=== PATIENT | male | born 1965 | race Caucasian/White ===

== ENCOUNTER 2017-08-05 08:20 | Emergency (ER) | payer OTHER ==
[~2017-08-05] VITALS: Ht 182.9 cm; Wt 168.0 kg
[2017-08-05] MEDS ORDERED: CARV6.25 PO (08:28)
[2017-08-05] MEDS ORDERED: GABA-112 PO (08:28)
[2017-08-05] MEDS ORDERED: SERT50TA PO (08:28)
[2017-08-05] MEDS ORDERED: HYDR-4717 PO (08:28)
[2017-08-05] MEDS ORDERED: ALBUAER PO (08:28)
[2017-08-05] MEDS ORDERED: ASPI81TA28 PO (08:28)
[2017-08-05] MEDS ORDERED: INSU3INJ3 SQ (08:28)
[2017-08-05] MEDS ORDERED: NTRGSL/4 UT (08:28)
[2017-08-05] MEDS ORDERED: BUME2TAB3 PO (08:35)
[2017-08-05] MEDS ORDERED: SEVE1TAB PO (08:35)
[2017-08-05] MEDS ORDERED: PRLSR20 PO (08:43)
[2017-08-05] MEDS ORDERED: WARFARIN PO (08:43)
[2017-08-05] MEDS ORDERED: NYST100033 TOP (08:43)
[2017-08-05] MEDS ORDERED: NVLG SQ (08:43)
[2017-08-05 08:47] VITALS: Ht 182.9 cm; Wt 168.0 kg
--- NOTE | 2017-08-05 08:47 | EMERGENCY ROOM VISIT NOTE ---
History Report prepared by Vinnie: Gomez Diaz Under the Supervision of: Dr. Miguel A Mullins M.D. First contact with patient: 08:30 Stated Complaint: ILLNESS History of Present Illness The patient is a 51 year old male who presents to the Emergency Room with complaints of worsening discoloration in his bilateral lower extremities. The patient states that he and his first started noticing his toes and lower extremities turning "blue" 10 days ago. He commonly follows with Dr. Stubbs - Vascular Surgery at [facility]. The patient currently has a port in place, which is used as a Dialysis Catheter. The patient's last visit to [facility] was around [place] time when he had the wounds on his feet evaluated. The blue coloration was not present at this time. The patient states that he is having pain in the lower extremities currently. 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 A total of 10 systems reviewed and were otherwise negative. Past Medical & Surgical Medical Problems: (1) Diabetes Diabetes Family History Diabetes mellitus Social History Marital Status: Housing Status: lives with family Occupation Status: unemployed Current/Historical Medications Scheduled Aspirin (Aspirin Ec), 81 MG PO DAILY Bumetanide (Bumex), 2 MG PO BID Carvedilol (Coreg), 6.25 MG PO BID Gabapentin (Neurontin), 100 MG PO HS Hydralazine Hcl (Apresoline), 50 MG PO TID Insulin Aspart (Novolog), 1 DOSE SQ AC Insulin Detemir (Levemir Flextouch), 32 UNITS SQ HS Nitroglycerin (Nitrostat), 0.4 MG UT PRN Nystatin (Topical) (Nystatin), 1 DOSE TOP BID Omeprazole (Prilosec), 20 MG PO DAILY Sertraline (Zoloft), 50 MG PO HS Sevelamer Hydroch (Renagel), 800 MG PO TIDM [Warfarin], 1 DOSE PO DIRECTED Scheduled PRN Albuterol Sulfate (Proventil Hfa), 2 PUFF PO Q6 PRN for Shortness of Breath Allergies Coded Allergies: Penicillins (Unverified Allergy, Severe, ANAPHYLAXIS, 08/05/17) Aspirin (Unverified Allergy, Unknown, UNKNOWN, 08/05/17) Sulfa Antibiotics (Unverified Allergy, Unknown, UNKNOWN, 08/05/17) Physical Exam Vital Signs Date Time Temp Pulse Resp B/P (MAP) Pulse Ox O2 Delivery O2 Flow Rate FiO2 08/05/17 11:39 69 16 117/58 94 08/05/17 11:11 69 16 117/58 94 Room Air 08/05/17 10:04 36.5 67 20 117/58 99 Room Air 08/05/17 09:22 67 08/05/17 09:09 97 Room Air 08/05/17 08:47 36.6 54 20 100/55 97 Room Air Physical Exam GENERAL: Patient is a healthy-appearing morbidly-obese male. HEAD: Normocephalic atraumatic EYES: Ocular movements intact pupils equal and react to light OROPHARYNX mucous membranes are moist no exudates present no erythema or edema present NECK: Supple no nuchal rigidity CHEST: Good equal expansion LUNGS: Lung sounds are distant CARDIAC: Normal S1 and S2 CHEST: There is a dialysis port catheter in place in the right chest wall. ABDOMEN: Soft nontender no guarding BACK: No CVA tenderness EXTREMITIES: No pain upon palpation normal muscle strength in all groups no clubbing cyanosis or edema. There is blacked 2nd, 3rd, and 4th toes. There are large open wounds to the lower extremities bilaterally. NEURO: Patient is following commands and answering questions appropriately. Alert and oriented x3 Cranial Nerves 2-12 grossly intact Medical Decision & Procedures ER Provider Diagnostic Interpretation: Radiology results as stated below per my review and radiologist interpretation: CHEST ONE VIEW PORTABLE CLINICAL HISTORY: 51 years-old Male presenting with Pt c/o SOB. TECHNIQUE: Portable upright AP view of the chest was obtained. COMPARISON: None. FINDINGS: Tunneled dual-lumen right internal jugular dialysis catheter terminates at the superior cavoatrial junction. Cardiac silhouette moderately enlarged. Prominence of pulmonary vasculature. Mildly low lung volumes with hypoventilatory changes. Nodular opacity at the right lung base may represent a prominent nipple shadow. No other focal opacity. No large effusion or pneumothorax. Osseous structures normal. Upper abdomen normal. IMPRESSION: 1. Cardiomegaly with volume overload suspected. No cele pulmonary edema. 2. Mildly low lung volumes with hypoventilatory changes. 3. Prominent nipple shadow suspected at the right lung base. Electronically signed by: Juan Hamilton M.D. 08/05/2017 9:11 AM Dictated Date/Time: 08/05/2017 9:10 AM Laboratory Results 08/05/17 08:40 Red Blood Count 3.95, Mean Corpuscular Volume 92.7, Mean Corpuscular Hemoglobin 30.9, Mean Corpuscular Hemoglobin Concent 33.3, Mean Platelet Volume 9.2, Neutrophils (%) (Auto) 87.8, Lymphocytes (%) (Auto) 3.6, Monocytes (%) (Auto) 4.5, Eosinophils (%) (Auto) 2.7, Basophils (%) (Auto) 0.2, Neutrophils # (Auto) 17.56, Lymphocytes # (Auto) 0.72, Monocytes # (Auto) 0.90, Eosinophils # (Auto) 0.54, Basophils # (Auto) 0.04 08/05/17 08:40 Test 08/05/17 08:40 08/05/17 09:21 White Blood Count 19.99 K/uL (4.8-10.8) Red Blood Count 3.95 M/uL (4.7-6.1) Hemoglobin 12.2 g/dL (14.0-18.0) Hematocrit 36.6 % (42-52) Mean Corpuscular Volume 92.7 fL (80-100) Mean Corpuscular Hemoglobin 30.9 pg (25-34) Mean Corpuscular Hemoglobin Concent 33.3 g/dl (32-36) Platelet Count 452 K/uL (130-400) Mean Platelet Volume 9.2 fL (7.4-10.4) Neutrophils (%) (Auto) 87.8 % Lymphocytes (%) (Auto) 3.6 % Monocytes (%) (Auto) 4.5 % Eosinophils (%) (Auto) 2.7 % Basophils (%) (Auto) 0.2 % Neutrophils # (Auto) 17.56 K/uL (1.4-6.5) Lymphocytes # (Auto) 0.72 K/uL (1.2-3.4) Monocytes # (Auto) 0.90 K/uL (0.11-0.59) Eosinophils # (Auto) 0.54 K/uL (0-0.5) Basophils # (Auto) 0.04 K/uL (0-0.2) RDW Standard Deviation 48.5 fL (36.4-46.3) RDW Coefficient of Variation 14.3 % (11.5-14.5) Immature Granulocyte % (Auto) 1.2 % Immature Granulocyte # (Auto) 0.23 K/uL (0.00-0.02) Prothrombin Time 15.7 SECONDS (9.0-12.0) Prothromb Time International Ratio 1.5 (0.9-1.1) Anion Gap 14.0 mmol/L (3-11) Est Creatinine Clear Calc Drug Dose 22.0 ml/min Estimated GFR () 10.6 Estimated GFR (Non- 9.1 BUN/Creatinine Ratio 13.4 (10-20) Calcium Level 7.4 mg/dl (8.5-10.1) Total Bilirubin 0.3 mg/dl (0.2-1) Aspartate Amino Transf (AST/SGOT) 23 U/L (15-37) Alanine Aminotransferase (ALT/SGPT) 22 U/L (12-78) Alkaline Phosphatase 351 U/L (45-117) Total Creatine Kinase 72 U/L (39-308) Creatine Kinase MB 4.4 ng/ml (0.5-3.6) Creatine Kinase MB Ratio 6.1 (0-3.0) Troponin I 0.197 ng/ml (0-0.045) Total Protein 4.9 gm/dl (6.4-8.2) Albumin 1.0 gm/dl (3.4-5.0) Globulin 3.9 gm/dl (2.5-4.0) Albumin/Globulin Ratio 0.3 (0.9-2) Bedside Glucose 176 mg/dl (70-99) Labs reviewed by ED physician. Medications Administered Medications (Trade) Dose Ordered Sig/Todd Route Start Time Stop Time Status Last Admin Dose Admin Ceftriaxone Sodium (Rocephin Inj) 1 gm NOW STAT IV 08/05/17 08:53 08/05/17 08:55 DC 08/05/17 11:47 1 GM Vancomycin HCl (Vancomycin 1gm/ 270ml Nss) 1 gm NOW STAT IV 08/05/17 08:53 08/05/17 08:55 DC 08/05/17 10:03 1 GM ECG Per My Interpretation Rate (beats per minute): 62 Rhythm: atrial fibrillation Findings: other (Old lateral infarct, No ST elevations or depressions. ) ED Course 0834: Past medical records reviewed. The patient was evaluated in room B6. A complete history and physical examination was performed. 53: Ordered Vancomycin HCl 1 gm IV, Rocephin 1 gm IV. 902: I discussed the case with Dr. Nimco Roman Vascular Surgery [facility]. He suggests speaking with a hospitalist at [facility]. 905: I discussed the case with Dr. Carlos Rojo Hospitalist. He will accept the patient for transfer. 1005: I discussed the case with Dr. Gonzalez again at this time. We discussed the patient's lab work that is now resulted. Medical Decision Differential diagnosis: Etiologies such as cellulitis, abscess, MRSA infection, DVT, necrotizing fasciitis, dermatitis, drug eruption, as well as others were entertained. This is a 51-year-old male presents emergency department complaining of gangrene to his foot. The patient is immediately requesting to be transferred to [facility] as his this is where all of his surgeries have taken place. As you will most likely require his toes to be amputated I feel that this is reasonable. The patient's vascular surgeon as there is well. He is also due for dialysis today. He has a large elevation in his white blood count cell count therefore the patient had an IV established. He received IV Rocephin and vancomycin. I did discuss the case with the on-call hospitalist at [facility]. Patient and are in agreement with the treatment plan. Medication Reconcilliation Current Medication List: was personally reviewed by me Blood Pressure Screening Patient's blood pressure: Low blood pressure Referred Consults Time Called: 852 Consulting Physician: Dr. Rinaldi - Vascular Surgery [facility] Returned Call: 902 I discussed the case with Dr. Rinaldi [facility]ascular [facility]. He suggests speaking with a hospitalist at [facility]. Additional Consults: Time Called: 903 Consulted Physician: Dr. Gonzalez [facility] Hospitalist Returned Call: 905 Additional Comments: I [facility]. He will accept the patient for transfer. Impression Primary Impression: Gangrene Scribe Attestation The scribe's documentation has been prepared under my direction and personally reviewed by me in its entirety. I confirm that the note above accurately reflects all work, treatment, procedures, and medical decision making performed by me. Departure Information Dispostion Transfer Acute Care Facility ([facility]) Referrals No Doctor, Assigned (PCP)
[2017-08-05] MEDS ORDERED: VANCOMYCIN 1GM/270ML NSS IV STA (08:53)
[2017-08-05] MEDS ORDERED: CEFTRIAXONE SOD INJ 1 GM ADDVIAL IV STA (08:53)
[2017-08-05 09:09] VITALS: O2SAT 97
--- NOTE | 2017-08-05 09:13 | DIAGNOSTIC IMAGING REPORT ---
CHEST ONE VIEW PORTABLE CLINICAL HISTORY: 51 years-old Male presenting with Pt c/o SOB. TECHNIQUE: Portable upright AP view of the chest was obtained. COMPARISON: None. FINDINGS: Tunneled dual-lumen right internal jugular dialysis catheter terminates at the superior cavoatrial junction. Cardiac silhouette moderately enlarged. Prominence of pulmonary vasculature. Mildly low lung volumes with hypoventilatory changes. Nodular opacity at the right lung base may represent a prominent nipple shadow. No other focal opacity. No large effusion or pneumothorax. Osseous structures normal. Upper abdomen normal. IMPRESSION: 1. Cardiomegaly with volume overload suspected. No cele pulmonary edema. 2. Mildly low lung volumes with hypoventilatory changes. 3. Prominent nipple shadow suspected at the right lung base. Electronically signed by: Juan Hamilton M.D. 08/05/2017 9:11 AM Dictated Date/Time: 08/05/2017 9:10 AM
[2017-08-05 09:24] LABS: BASO % 0.2 %; BASO ABS # 0.04 K/uL (0-0.2); EOS % 2.7 %; EOS ABS # 0.54 K/uL (0-0.5); HEMATOCRIT 36.6 % (42-52); HEMOGLOBIN 12.2 g/dL (14.0-18.0); IG# 0.23 K/uL (0.00-0.02); LYMPH % 3.6 %; LYMPH ABS # 0.72 K/uL (1.2-3.4); MEAN CELL VOLUME 92.7 fL (80-100); MEAN CORPUSCULAR HEMOGLOBIN 30.9 pg (25-34); MEAN CORPUSCULAR HGB CONC 33.3 g/dl (32-36); MEAN PLATELET VOLUME 9.2 fL (7.4-10.4); MONO % 4.5 %; NEUT % 87.8 %; NEUT ABS # 17.56 K/uL (1.4-6.5); PLATELET COUNT 452 K/uL (130-400); RED CELL DISTRIBUTION WIDTH CV 14.3 % (11.5-14.5); RED CELL DISTRIBUTION WIDTH SD 48.5 fL (36.4-46.3); WHITE BLOOD COUNT 19.99 K/uL (4.8-10.8)
[2017-08-05 09:54] LABS: CALCIUM 7.4 mg/dl (8.5-10.1); CKMB 4.4 ng/ml (0.5-3.6); CREATININE 6.47 mg/dl (0.60-1.40); POTASSIUM 4.1 mmol/L (3.5-5.1); TOTAL PROTEIN 4.9 gm/dl (6.4-8.2)
[2017-08-05 09:57] LABS: INR 1.5 (0.9-1.1)
[2017-08-05 10:04] VITALS: TEMP 36.5
[2017-08-05 11:39] VITALS: BP 117/58; PULSE 69; O2SAT 94
== END 2017-08-05 11:40 | disposition short-term general hospital (02) ==
LOC: EDBD 08:20 → C.EDB 08:22
DX: I96 Gangrene, not elsewhere classified (principal); I48.91 Unspecified atrial fibrillation; E11.9 Type 2 diabetes mellitus without complications; E66.01 Morbid (severe) obesity due to excess calories; Z79.82 Long term (current) use of aspirin; Z79.4 Long term (current) use of insulin; Z79.899 Other long term (current) drug therapy; Z88.0 Allergy status to penicillin; Z88.1 Allergy status to other antibiotic agents; Z88.2 Allergy status to sulfonamides; Z88.6 Allergy status to analgesic agent; Z83.3 Family history of diabetes mellitus; Z95.9 Presence of cardiac and vascular implant and graft, unspecified